=== PATIENT | male | born 1975 | race Two or more races ===

== ENCOUNTER 2024-05-17 16:46 | Inpatient (IN) | payer MEDICAID, OTHER ==
[~2024-05-17] VITALS: Ht 177.8 cm; Wt 99.5 kg
[2024-05-17 17:42] LABS: Urine Bacteria None Seen /hpf (None Seen)
[2024-05-17 17:56] LABS: Basophils # (auto) 0 10 ^3/uL (0-0.2); Basophils % (auto) 0.1 % (0.0-2.0); Eosinophils # (auto) 0 10 ^3/uL (0-0.8); Hematocrit 46.3 % (41.0-53.0); Hemoglobin 15.4 g/dL (13.5-17.5); Lymphocytes # (auto) 0.8 10 ^3/uL (0.4-5.4); Lymphocytes % (auto) 4.3 % (10.0-50.0); Mean Corpuscular Hgb Conc. 33.3 g/dL (32.0-36.0); Mean Corpuscular Volume 90.1 fL (80.0-100.0); Monocytes # (auto) 0.7 10 ^3/uL (0-1.3); Neutrophils # (auto) 16.6 10 ^3/uL (1.6-8.6); Neutrophils % (auto) 91.6 % (37.0-80.0); Red Blood Cells 5.13 10^6/uL (4.5-5.90); Red Cell Distribution Width 14.5 % (11.8-14.3); White Blood Cell 18.1 10^3/uL (4.4-10.8)
[2024-05-17 18:08] LABS: Urine Blood 2+ /uL (Negative); Urine Clarity Clear (Clear); Urine Color Yellow (Yellow); Urine Mucus FEW (None Seen); Urine Protein, UAD 1+ (Negative); Urine Specific Gravity 1.029 (1.001-1.035); Urine Urobilinogen Normal (Negative); Urine WBC <1 /hpf (0 - 3)
[2024-05-17 18:15] LABS: Alanine Aminotransferase 78 U/L (7-40); Albumin 4.8 g/dL (3.2-4.8); Alkaline Phosphatase 71 U/L (46-116); Anion Gap 8 (5-15); Aspartate Aminotransferase 52 U/L (13-40); BUN/Creatinine Ratio 8.4 (10.0-20.0); Bilirubin, Total 0.8 mg/dL (0.2-1.0); Blood Urea Nitrogen 10 mg/dL (9-23); Calcium 10.3 mg/dL (8.7-10.4); Carbon Dioxide 20 mmol/L (20-30); Chloride 107 mmol/L (98-107); Glucose 150 mg/dL (74-106); Potassium 4.4 mmol/L (3.5-5.1); Sodium 135 mmol/L (136-145)
[2024-05-17 18:16] LABS: Total Protein 7.8 g/dL (5.7-8.2)
[2024-05-17 18:25] LABS: Lactic Acid w/Reflex 2.6 mmol/L (0.4-2.0)
[2024-05-17] MEDS: ONDANSETRON ODT 4 MG TAB PO ONE (18:42)
[2024-05-17] MEDS: KETOROLAC TROMETH 60MG/2ML VIAL IM ONE (18:43)
[2024-05-17] MEDS: HYDROcodone-ACET 10/325MG TAB PO ONE (18:43)
[2024-05-17] MEDS: SODIUM CHLORIDE 0.9% 1,000 ML IV ONE (18:59)
[2024-05-17] MEDS ORDERED: MORPHINE SULFATE INJ 2 MG/ml SYRG IV PRN (19:30)
[2024-05-17] MEDS ORDERED: DOCUSATE SOD 100 MG CAP PO PRN (19:30)
[2024-05-17] MEDS ORDERED: ONDANSETRON HCL 4 MG/2 ML VIAL IV PRN (19:30)
[2024-05-17] MEDS: SODIUM CHLORIDE 0.9% 1,000 ML IV SCH (19:30)
[2024-05-17] MEDS: cefTRIAXone 1GM/50ML D5W 50 ML IV ONE (19:52)
[2024-05-17] MEDS: TAMSULOSIN HYDROCHLORIDE 0.4 MG CAP PO ONE (20:06)
[2024-05-18] VITALS (9 sets, daily range): BP systolic 116–168; BP diastolic 69–93; PULSE 45–65; RESP 16–24; TEMP 97.8–98.7; O2SAT 97–100
[2024-05-18] MEDS: MORPHINE SULFATE INJ 2 MG/ml SYRG IV PRN (00:53)
[2024-05-18] MEDS: ONDANSETRON HCL 4 MG/2 ML VIAL IV PRN (01:48)
[2024-05-18] MEDS: KETOROLAC TROMETH 30 MG/ML 1ML VIAL IV SCH (01:48)
[2024-05-18] MEDS ORDERED: KETOROLAC TROMETH 30 MG/ML 1ML VIAL IV SCH ×2 (06:00)
[2024-05-18] MEDS: cefTRIAXone 1GM/50ML D5W 50 ML IV SCH (09:15)
[2024-05-18] MEDS: MANNITOL FTV 25% 12.5 GM/50 ML 50 ML IV ONE (13:35)
[2024-05-18] MEDS: TAMSULOSIN HYDROCHLORIDE 0.4 MG CAP PO SCH (18:02)
[2024-05-19] VITALS (7 sets, daily range): BP systolic 123–164; BP diastolic 76–114; PULSE 50–64; RESP 16–20; TEMP 97.2–98.2; O2SAT 95–100
[2024-05-19] MEDS: MORPHINE SULFATE INJ 2 MG/ml SYRG IV PRN (12:39)
[2024-05-20 01:00] VITALS: BP 144/80; PULSE 50; RESP 18; TEMP 98.4; O2SAT 95
[2024-05-20 05:00] VITALS: BP 154/91; PULSE 56; RESP 17; TEMP 98.1; O2SAT 95
[2024-05-20 08:06] VITALS: BP 169/83; PULSE 47; RESP 20; TEMP 97.9; O2SAT 100
[2024-05-20 10:20] LABS: Basophils # (auto) 0 10 ^3/uL (0-0.2); Basophils % (auto) 0.3 % (0.0-2.0); Eosinophils # (auto) 0 10 ^3/uL (0-0.8); Eosinophils % (auto) 0.5 % (0.0-7.0); Hemoglobin 13.1 g/dL (13.5-17.5); Lymphocytes # (auto) 1.3 10 ^3/uL (0.4-5.4); Mean Corpuscular Hemoglobin 30.2 pg (28.0-32.0); Mean Corpuscular Hgb Conc. 33.4 g/dL (32.0-36.0); Mean Corpuscular Volume 90.3 fL (80.0-100.0); Monocytes # (auto) 0.7 10 ^3/uL (0-1.3); Monocytes % (auto) 8.1 % (0.0-12.0); Neutrophils # (auto) 6.4 10 ^3/uL (1.6-8.6); Neutrophils % (auto) 76.1 % (37.0-80.0); Red Blood Cells 4.32 10^6/uL (4.5-5.90); Red Cell Distribution Width 13.7 % (11.8-14.3); White Blood Cell 8.4 10^3/uL (4.4-10.8)
[2024-05-20 10:37] LABS: Chloride 108 mmol/L (98-107); Sodium 137 mmol/L (136-145)
[2024-05-20 10:38] LABS: Anion Gap 3 (5-15); Calcium 8.9 mg/dL (8.5-10.1); Carbon Dioxide 26 mmol/L (20-30)
[2024-05-20 10:43] LABS: BUN/Creatinine Ratio 9.8 (10.0-20.0); Blood Urea Nitrogen 12 mg/dL (9-23); Glucose 125 mg/dL (74-106)
[2024-05-20] MEDS: MANNITOL FTV 25% 12.5 GM/50 ML 50 ML IV ONE (11:48)
[2024-05-20 13:17] VITALS: BP 149/89; PULSE 50; RESP 20; TEMP 98.5; O2SAT 98
[2024-05-20 17:00] VITALS: BP 151/90; PULSE 56; RESP 18; TEMP 98.8; O2SAT 98
[2024-05-20 21:00] VITALS: BP 152/82; PULSE 58; RESP 18; TEMP 98.4; O2SAT 97
[2024-05-21 01:00] VITALS: BP 146/90; PULSE 58; RESP 18; TEMP 98.3; O2SAT 97
[2024-05-21 05:00] VITALS: BP 144/88; PULSE 53; RESP 18; TEMP 98.2; O2SAT 98
[2024-05-21 05:44] LABS: INR 1.05 (0.9-1.15); Prothrombin Time 11.1 sec (9.3-11.8)
[2024-05-21 08:30] VITALS: BP 140/84; PULSE 51; RESP 20; TEMP 97.7; O2SAT 97
[2024-05-21 17:11] VITALS: BP 164/80; PULSE 56; RESP 19; TEMP 98.3; O2SAT 98
== END 2024-05-21 20:30 | disposition home or self-care (01) | DRG 463 ==
LOC: ER 16:46 → OVERFLOW 05-18 00:56 → EAST 05-18 01:01
PROVIDERS: ADMIT Nurse Practitioner Family; ATTEND Nurse Practitioner Acute Care
DX: N13.6 Pyonephrosis (principal); E87.21 Acute metabolic acidosis; R65.10 Systemic inflammatory response syndrome (SIRS) of non-infectious origin without acute organ dysfunction; E86.0 Dehydration; K44.9 Diaphragmatic hernia without obstruction or gangrene; K59.00 Constipation, unspecified; R74.01 Elevation of levels of liver transaminase levels
CPT/HCPCS: 36415; 71045; 74176; 76775; 80048; 80053; 81001; 83605; 83690; 85025; 85610; 85730; 86850; 86900; 86901; 87086; 93005; G0378; J1885; J2405; Q0162

== ENCOUNTER 2024-05-29 01:28 | Inpatient (IN) | payer MEDICAID ==
[~2024-05-29] VITALS: Ht 177.8 cm; Wt 86.7 kg
[2024-05-29 02:18] LABS: Urine Bacteria None Seen /hpf (None Seen)
[2024-05-29 02:33] LABS: Urine Amorphous Crystal FEW /hpf (None Seen); Urine Blood Negative /uL (Negative); Urine Clarity Turbid (Clear); Urine Color Light-Yellow (Yellow); Urine Mucus FEW (None Seen); Urine Protein, UAD TRACE (Negative); Urine Specific Gravity 1.022 (1.001-1.035); Urine Urobilinogen Normal (Negative); Urine WBC 4 /hpf (0 - 3)
[2024-05-29 02:36] LABS: Urine Blood Negative /uL (Negative); Urine Clarity Turbid (Clear); Urine Color Light-Yellow (Yellow); Urine Protein, UAD TRACE (Negative); Urine Specific Gravity 1.022 (1.001-1.035); Urine Urobilinogen Normal (Negative)
[2024-05-29 02:52] LABS: Basophils # (auto) 0.1 10 ^3/uL (0-0.2); Basophils % (auto) 0.4 % (0.0-2.0); Eosinophils # (auto) 0 10 ^3/uL (0-0.8); Eosinophils % (auto) 0.1 % (0.0-7.0); Hematocrit 47.3 % (41.0-53.0); Hemoglobin 15.7 g/dL (13.5-17.5); Lymphocytes # (auto) 1.1 10 ^3/uL (0.4-5.4); Lymphocytes % (auto) 5.2 % (10.0-50.0); Mean Corpuscular Hgb Conc. 33.2 g/dL (32.0-36.0); Mean Corpuscular Volume 90.1 fL (80.0-100.0); Monocytes # (auto) 0.6 10 ^3/uL (0-1.3); Monocytes % (auto) 2.8 % (0.0-12.0); Neutrophils # (auto) 18.6 10 ^3/uL (1.6-8.6); Neutrophils % (auto) 91.5 % (37.0-80.0); Red Blood Cells 5.25 10^6/uL (4.5-5.90); Red Cell Distribution Width 14.6 % (11.8-14.3); White Blood Cell 20.3 10^3/uL (4.4-10.8)
[2024-05-29 03:10] LABS: Alanine Aminotransferase 35 U/L (7-40); Albumin 4.8 g/dL (3.2-4.8); Alkaline Phosphatase 73 U/L (46-116); Anion Gap 7 (5-15); Aspartate Aminotransferase 22 U/L (13-40); BUN/Creatinine Ratio 8.1 (10.0-20.0); Bilirubin, Total 0.5 mg/dL (0.2-1.0); Blood Urea Nitrogen 10 mg/dL (9-23); Calcium 10.7 mg/dL (8.7-10.4); Carbon Dioxide 23 mmol/L (20-30); Chloride 106 mmol/L (98-107); Glucose 140 mg/dL (74-106); Potassium 4.3 mmol/L (3.5-5.1); Sodium 136 mmol/L (136-145); Total Protein 7.8 g/dL (5.7-8.2)
[2024-05-29 03:57] VITALS: PULSE 83; RESP 18; O2SAT 99
[2024-05-29] MEDS: TAMSULOSIN HYDROCHLORIDE 0.4 MG CAP PO ONE ×2 (04:08→14:21)
[2024-05-29] MEDS: KETOROLAC TROMETH 60MG/2ML VIAL IM ONE (04:08)
[2024-05-29] MEDS: SODIUM CHLORIDE 0.9% 1,000 ML IV ONE (04:21)
[2024-05-29] MEDS: cefTRIAXone 1GM/50ML D5W 50 ML IV ONE (04:23)
[2024-05-29] MEDS ORDERED: TEMAZEPAM 15 MG CAP PO PRN (05:15)
[2024-05-29] MEDS ORDERED: ACETAMINOPHEN 325 MG TAB PO PRN (05:15)
[2024-05-29] MEDS ORDERED: ONDANSETRON HCL 4 MG/2 ML VIAL IV PRN (05:15)
[2024-05-29 06:15] VITALS: PULSE 67; RESP 30; O2SAT 96
[2024-05-29 07:41] VITALS: PULSE 69; RESP 20; O2SAT 95
[2024-05-29] MEDS: TAMSULOSIN HYDROCHLORIDE 0.4 MG CAP PO SCH (18:11)
[2024-05-29] MEDS: MORPHINE SULFATE INJ 2 MG/ml SYRG IV PRN (18:12)
[2024-05-29 20:34] VITALS: BP 135/81; PULSE 98; RESP 20; TEMP 98.6; O2SAT 95; O2SAT 97
[2024-05-29 21:00] VITALS: BP 140/86; PULSE 93; RESP 19; TEMP 98.2; O2SAT 92
[2024-05-30 04:45] VITALS: BP 170/70; PULSE 86; RESP 16; TEMP 97.5; O2SAT 92
[2024-05-30] MEDS: cefTRIAXone 1GM/50ML D5W 50 ML IV SCH (05:01)
[2024-05-30] MEDS: HYDROcodone-ACET 5/325MG TAB PO PRN (06:22)
[2024-05-30 06:49] LABS: Basophils # (auto) 0 10 ^3/uL (0-0.2); Basophils % (auto) 0.3 % (0.0-2.0); Eosinophils # (auto) 0.1 10 ^3/uL (0-0.8); Eosinophils % (auto) 1.1 % (0.0-7.0); Hematocrit 43.4 % (41.0-53.0); Hemoglobin 14.6 g/dL (13.5-17.5); Lymphocytes # (auto) 1.5 10 ^3/uL (0.4-5.4); Lymphocytes % (auto) 14.7 % (10.0-50.0); Mean Corpuscular Hemoglobin 30.3 pg (28.0-32.0); Mean Corpuscular Hgb Conc. 33.6 g/dL (32.0-36.0); Mean Corpuscular Volume 90.3 fL (80.0-100.0); Monocytes # (auto) 0.6 10 ^3/uL (0-1.3); Monocytes % (auto) 5.8 % (0.0-12.0); Neutrophils % (auto) 78.1 % (37.0-80.0); Red Blood Cells 4.81 10^6/uL (4.5-5.90); Red Cell Distribution Width 14.1 % (11.8-14.3); White Blood Cell 10.2 10^3/uL (4.4-10.8)
[2024-05-30 08:10] VITALS: PULSE 96; RESP 18; O2SAT 96
[2024-05-30 08:43] VITALS: BP 147/85; PULSE 96; RESP 18; TEMP 98.6; O2SAT 94
[2024-05-30] MEDS: KETOROLAC TROMETH 30 MG/ML 1ML VIAL IV PRN (08:58)
[2024-05-30] MEDS: SODIUM CHLORIDE 0.9% 1,000 ML IV SCH (08:58)
[2024-05-30] MEDS: MANNITOL FTV 25% 12.5 GM/50 ML 50 ML IV ONE (12:18)
[2024-05-30] MEDS: OXYCODONE W/ ACETAMINOPHEN 5/325MG TABLET PO PRN (12:19)
[2024-05-30 12:36] VITALS: BP 125/54; PULSE 75; RESP 18; TEMP 97.7; O2SAT 96
[2024-05-30 16:47] VITALS: BP 134/79; PULSE 61; RESP 18; TEMP 98.6; O2SAT 97
[2024-05-30 20:00] VITALS: PULSE 61; RESP 18; O2SAT 97
[2024-05-31 05:00] VITALS: BP 137/78; PULSE 69; RESP 20; TEMP 98.6; O2SAT 99
[2024-05-31 08:50] VITALS: BP 137/85; PULSE 60; RESP 20; TEMP 98.1; O2SAT 96
[2024-05-31] MEDS ORDERED: TRAM50TA2 PO (10:17)
[2024-05-31] MEDS ORDERED: CIPR-173 PO (10:17)
[2024-05-31] MEDS ORDERED: TAMS-35 PO (10:17)
[2024-05-31 13:00] VITALS: BP 132/86; PULSE 69; RESP 20; TEMP 98.1; O2SAT 97
[2024-05-31 17:00] VITALS: BP 144/87; PULSE 71; RESP 20; TEMP 98.1; O2SAT 98
[2024-05-31 20:00] VITALS: PULSE 75; RESP 22; O2SAT 98
[2024-05-31 21:00] VITALS: BP 136/88; PULSE 75; RESP 22; TEMP 97.6; O2SAT 98
[2024-06-01 01:00] VITALS: BP 141/87; PULSE 68; RESP 20; TEMP 98; O2SAT 97
[2024-06-01 05:00] VITALS: BP 129/89; PULSE 93; RESP 20; TEMP 98.1; O2SAT 98
[2024-06-01 09:00] VITALS: BP_SYST 119; BP_SYST 145; BP_DIAS 80; BP_DIAS 90; PULSE 53; PULSE 67; RESP 18; RESP 20; TEMP 97.7; TEMP 97.8; O2SAT 96; O2SAT 98
== END 2024-06-01 10:35 | disposition home or self-care (01) | DRG 720 ==
LOC: ER 01:28 → OVERFLOW 05:12 → EAST 16:35
PROVIDERS: ADMIT Nurse Practitioner; ATTEND Family Medicine
DX: A41.9 Sepsis, unspecified organism (principal); N13.6 Pyonephrosis; E86.0 Dehydration; Z87.442 Personal history of urinary calculi
CPT/HCPCS: 36415; 74018; 74176; 80053; 81001; 81003; 85025; 87040; 87081; 87086; 96365; 96372; G0378; J1885